=== PATIENT | male | born 1995 | race African-American/Black ===

== ENCOUNTER 2017-06-27 13:48 | Emergency (ER) | payer OTHER ==
[2017-06-27 13:58] VITALS: BP 135/55; PULSE 59; TEMP 98.1; BMI 25.8
[2017-06-27 14:25] LABS: URINE APPEARANCE SLCLOUDY; URINE BILIRUBIN NEGATIVE (NEGATIVE); URINE BLOOD NEGATIVE (NEGATIVE); URINE COLOR YELLOW; URINE GLUCOSE (UA) NEGATIVE (NEGATIVE); URINE KETONE NEGATIVE (NEGATIVE); URINE NITRITE NEGATIVE (NEGATIVE); URINE PROTEIN NEGATIVE (NEGATIVE); URINE UROBILINOGEN NEGATIVE mg/dL (0.2-1.0)
[2017-06-27] MEDS ORDERED: AZITHROMYCIN 250 MG TABLET PO ONE (15:31)
[2017-06-27] MEDS ORDERED: AZITHROMYCIN 500 MG TABLET ONE (15:35)
--- NOTE | 2017-06-27 15:40 | PDOC ---
History of Present Illness - General Chief Complaint: Penile Drainage Stated Complaint: STD TESTING Time Seen by Provider: 06/27/17 15:27 History Source: Patient Exam Limitations: No Limitations - History of Present Illness Initial Comments: 06/27/17 15:48 Patient is a 22-year-old male with no past medical history who presents emergency Department with 2 days of penile drainage. Patient states that he saw a white creamy discharge from his penis this morning. He states that it only comes out when he milks his penis. Denies fevers, chills, penile pain, testicular pain, frequency, urgency, hematuria, dysuria. Patient states that he had unprotected sexual encounter couple days ago with a new partner. Past History - Travel Traveled outside of the country in the last 30 days: No Close contact w/someone who was outside of country & ill: No - Past Medical History Allergies/Adverse Reactions: Allergies Allergy/AdvReac Type Severity Reaction Status Date / Time No Known Allergies Allergy Verified 06/27/17 13:54 Home Medications: Ambulatory Orders NK [No Known Home Medication] 06/27/17 CVA: No COPD: No DVT: No - Immunization History Immunization Up to Date: Yes - Suicide/Smoking/Psychosocial Hx Smoking History: Never smoked Have you smoked in the past 12 months: No Information on smoking cessation initiated: No Hx Alcohol Use: No Drug/Substance Use Hx: No Substance Use Type: None Review of Systems - Review of Systems Able to Perform ROS?: Yes Comments:: 06/27/17 15:50 CONSTITUTIONAL: Absent: fever, chills, diaphoresis, generalized weakness, malaise, loss of appetite HEENT: Absent: rhinorrhea, nasal congestion, throat pain, throat swelling, difficulty swallowing, mouth swelling, ear pain, eye pain, visual Changes CARDIOVASCULAR: Absent: chest pain, loss of consciousness, palpitations, irregular heart rate, peripheral edema RESPIRATORY: Absent: cough, shortness of breath, dyspnea with exertion, orthopnea, wheezing, stridor, hemoptysis GASTROINTESTINAL: Absent: abdominal pain, abdominal distension, nausea, vomiting, diarrhea, constipation, melena, hematochezia GENITOURINARY: Present: penile drainage Absent: dysuria, frequency, urgency, hesitancy, hematuria, flank pain, genital pain MUSCULOSKELETAL: Absent: myalgia, arthralgia, joint swelling SKIN: Absent: rash, itching, pallor HEMATOLOGIC/IMMUNOLOGIC: Absent: easy bleeding, easy bruising, lymphadenopathy, frequent infections ENDOCRINE: Absent: unexplained weight gain, unexplained weight loss, heat intolerance, cold intolerance NEUROLOGIC: Absent: headache, focal weakness or paresthesias, dizziness, unsteady gait, seizure, mental status changes, bladder or bowel incontinence PSYCHIATRIC: Absent: anxiety, depression, suicidal or homicidal ideation, hallucinations. Is the patient limited Danish proficient: No *Physical Exam - Vital Signs Last Vital Signs Temp Pulse Resp BP Pulse Ox 98.1 F 59 L 16 135/55 98 06/27/17 13:55 06/27/17 13:55 06/27/17 13:55 06/27/17 13:55 06/27/17 13:55 - Physical Exam Comments: 06/27/17 15:50 GENERAL: The patient is awake, alert, and fully oriented, in no acute distress. HEAD: Normal with no signs of trauma. EYES: Pupils equal, round and reactive to light, extraocular movements intact, sclera anicteric, conjunctiva clear. EXTREMITIES: Normal range of motion, no edema. NEUROLOGICAL: Normal speech, normal gait. PSYCH: Normal mood, normal affect. SKIN: Warm, Dry, normal turgor, no rashes or lesions noted. : Circumsized penis. No lesions on the external penis or scrotum. Testicles descended b/l with no masses felt. No pain to palpation. No drainage. ED Treatment Course - ADDITIONAL ORDERS Additional order review: Laboratory Results 06/27/17 14:20 Urine Color Yellow Urine Appearance Slcloudy Urine pH 5.0 Ur Specific [place] 1.031 Urine Protein Negative Urine Glucose (UA) Negative Urine Ketones Negative Urine Blood Negative Urine Nitrite Negative Urine Bilirubin Negative Urine Urobilinogen Negative Medical Decision Making - Medical Decision Making 06/27/17 15:54 Pt. is a 22 y/o male who presents for STD testing after an unprotected sexual encounter. No penile discharge seen on exam, however will treat empirically for GC/Chlamydia at this time. Pt. does not want HIV testing at this time as he needs to leave. Provided a referral to the [facility]. Urine is negative for infection at this time. Will d/c home. *DC/Admit/Observation/Transfer Diagnosis at time of Disposition: Screen for STD (sexually transmitted disease) - Discharge Dispostion Disposition: HOME Admit: No - Referrals Referrals: Loren Joel MD [Staff Physician] - - Patient Instructions Printed Discharge Instructions: Facts About Sexually Transmitted Infections Additional Instructions: You were tested for gonorrhea and chlamydia today. Your results will be back in 2-3 days. You were treated for both in the ED today with antibiotics. You may call for your results on . Wear condoms to prevent STD's. You were provided a referral for the [facility] for further STD testing. Return to the ED if you have fevers, genital pain, pain when you urinate or have any changes in your symptoms - Post Discharge Activity
[2017-06-27 20:12] LABS: URINE LEUK ESTERASE Negative (NEGATIVE)
== END 2017-06-27 15:55 | disposition home or self-care (01) ==
LOC: JERFT 13:48
DX: Z11.3 Encounter for screening for infections with a predominantly sexual mode of transmission (principal)
CPT/HCPCS: 36415; 81003; 87086; 87491; 87591; 99281-25